=== PATIENT | female | born 1995 | race Caucasian/White ===

== ENCOUNTER 2024-09-18 13:53 | Emergency (ER) | payer OTHER ==
[~2024-09-18] VITALS: Ht 157.5 cm; Wt 75.0 kg
[2024-09-18 14:14] VITALS: BP 143/59; TEMP 97.1
[2024-09-18] MEDS ORDERED: SODIUM CHLORIDE 0.9% 100 ML ONE (16:01)
[2024-09-18] MEDS ORDERED: 0.9% SODIUM CHLORIDE 10 ML SYRINGE IVP ONE (16:01)
[2024-09-18] MEDS ORDERED: IOHEXOL 350 MG/ML 100 ML VIAL ONE (16:01)
[2024-09-18] MEDS: SODIUM CHLORIDE 0.9% 1,000 ML IV ONE ×2 (16:30→20:03)
[2024-09-18] MEDS: ONDANSETRON HCL 4 MG/2 ML VIAL IVP ONE (16:33)
[2024-09-18] MEDS: ACETAMINOPHEN 500 MG TABLET PO ONE (16:33)
[2024-09-18 17:33] LABS: BASOPHILS % (AUTO) 0.8 % (0.0-2.0); EOSINOPHILS % (AUTO) 0.1 % (1.0-6.0); HEMATOCRIT 38.8 % (36-46); HEMOGLOBIN 12.9 g/dL (12.0-16.0); LYMPHOCYTES # (AUTO) 1.7 K/uL (1.0-4.8); LYMPHOCYTES % (AUTO) 18.7 % (22.0-44.0); MEAN CORPUSCULAR HEMOGLOBIN 28.2 pg (26.0-34.0); MEAN CORPUSCULAR HGB CONC 33.3 G/dL (31.0-37.0); MEAN CORPUSCULAR VOLUME 85 fL (80-100); MONOCYTES # (AUTO) 0.6 K/uL (0.1-1.0); MONOCYTES % (AUTO) 6.4 % (2.0-9.0); NEUTROPHILS # (AUTO) 6.9 K/uL (1.8-7.7); PLATELET COUNT (AUTO) 314 K/uL (150-450); RED BLOOD CELL COUNT(AUTO) 4.58 MIL/uL (4.00-5.20); RED CELL DISTRIBUTION WIDTH 12.8 % (11.5-14.5); WHITE BLOOD COUNT (AUTO) 9.2 K/uL (4.5-11.0)
[2024-09-18 17:36] LABS: ANION GAP 16 mmol/L (8-16); CALCIUM, TOTAL 8.9 mg/dL (8.8-10.5); CARBON DIOXIDE 23 mmol/L (22-29); CHLORIDE 104 mmol/L (98-107); CREATININE 0.61 mg/dL (0.60-1.30); GLOMERULAR FILTR. RATE CALC > 60 mL/min (>60); GLUCOSE,RANDOM 88 mg/dL (70-110); POTASSIUM 3.3 mmol/L (3.5-5.1); SODIUM SERUM 143 mmol/L (136-145); UREA NITROGEN, BLOOD 8 mg/dL (7-18)
[2024-09-18 17:42] LABS: BILIRUBIN,DIRECT 0.2 mg/dL (0.00-0.20); BILIRUBIN,TOTAL 0.7 mg/dL (0.1-1.0); TOTAL PROTEIN, SERUM 7.6 g/dL (6.4-8.2)
[2024-09-18 17:48] LABS: CREATINE KINASE, TOTAL ONLY 104 U/L (26-192); TROPONIN I-HIGH SENSITIVITY Less Than 4 ng/L (<51)
[2024-09-18] MEDS: MORPHINE SULFATE 2 MG/ML SYRINGE IVP ONE ×2 (18:12→20:31)
[2024-09-18] MEDS ORDERED: ACET-3385 PO (21:01)
[2024-09-18] MEDS ORDERED: IBUP-1492 PO (21:01)
[2024-09-18 21:10] VITALS: PULSE 98; RESP 18; O2SAT 98
== END 2024-09-18 22:30 | disposition home or self-care (01) ==
LOC: EMS 14:07
DX: S20.219A Contusion of unspecified front wall of thorax, initial encounter (principal); M54.2 Cervicalgia; R51.9 Headache, unspecified; M25.512 Pain in left shoulder; R11.2 Nausea with vomiting, unspecified; V89.2XXA Person injured in unspecified motor-vehicle accident, traffic, initial encounter; Y93.89 Activity, other specified; Y92.410 Unspecified street and highway as the place of occurrence of the external cause; Y99.8 Other external cause status
CPT/HCPCS: 99285; 70450; 96374; 96361; 71045; 80048; 80076; 82550; 84484; 84703; 85025; 36415; 73030; 73060; 73080; 71260; 72125; 74177; 93005; 96376; G0238; Q9967; J2270; J2405; J7030; J7050; 72193; 74160; 96375